=== PATIENT | male | born 1960 | race Caucasian/White ===

== ENCOUNTER 2024-04-29 16:25 | Emergency (ER) | payer BC, SELFPAY ==
[2024-04-29 16:25] VITALS: BP 144/80; PULSE 76; RESP 20; TEMP 36.8; O2SAT 98; BMI 26.8
[2024-04-29 16:45] LABS: Absolute Lymphocyte Count 2.29 X10^3/uL (0.83-4.51); Absolute Neutrophil Count 6.2 X10^3/uL (2.0-7.7); Basophil# 0.13 X10^3/uL; Basophil% 1.3 % (0-1); Eosinophil# 0.26 X10^3/uL; Eosinophils% 2.7 % (0-5); Hematocrit 46.2 % (40-54); Hemoglobin 15.7 g/dL (13.0-16.5); Lymphocyte # 2.29 X10^3/ul (0.83-4.51); Lymphocyte % 23.7 % (19-41); Mean Corpuscular Hgb 29.8 pg (27.0-32.0); Mean Corpuscular Volume 87.7 fL (80-94); Mean Platelet Vol. 8.6 fl (6.2-12.0); Monocyte# 0.71 X10^3/uL; Monocyte% 7.3 % (0-10); NRBC Flagged by Analyzer 0 % (0-5); Neutrophil # 6.23 X10^3/uL (2.7-7.7); Neutrophil % 64.5 % (47-70); Platelet Count 266 K/mm3 (150-450); RBC Distribution Width CV 13.4 % (11.6-14.6); RBC Distribution Width SD 43.5 fl (35.1-43.9); Red Blood Count 5.27 M/mm3 (4.6-6.2); White Blood Count 9.7 K/mm3 (4.4-11.0)
[2024-04-29 17:00] LABS: AST(SGOT) 25 U/L (15-37); Alanine Aminotransfer ALT/SGPT 34 U/L (16-61); Albumin, Serum 3.6 g/dL (3.2-5.0); Alkaline Phosphatase 85 U/L (45-117); Anion Gap 3 (5-15); BUN 13 mg/dL (7-18); BUN/Creat Ratio 12.4 RATIO (10-20); Calcium,Total 9.7 mg/dL (8.5-10.1); Chloride 100 mmol/L (98-107); Creatinine, Serum 1.05 mg/dL (0.70-1.30); EST Glomerular Filtration Rate 76 mL/min (>60); Est Glom Filt Rate - Afr Amer 92 mL/min (>60); Estimated Creatinine Clearance 69.07 ml/min; Globulin 3.6 g/dL (2.2-4.2); Glucose 92 mg/dL (74-106); Potassium 3.6 mmol/L (3.5-5.1); Protein, Total 7.2 g/dL (6.4-8.2); Sodium Level 136 mmol/L (136-145)
--- NOTE | 2024-04-29 17:30 | CT_ITS ---
EXAM: CT ABDOMEN AND PELVIS WITH INTRAVENOUS CONTRAST CLINICAL INDICATION: RLQ pain TECHNIQUE: Helically acquired images were obtained of the abdomen and pelvis with intravenous contrast. This CT exam was performed using one or more of the following dose reduction techniques: automated exposure control, adjustment of the mA and/or kV according to patient size, and/or use of iterative reconstruction technique. CONTRAST: IV 100mL Isovue-300 COMPARISON: No relevant prior studies available. FINDINGS: LOWER THORAX: Unremarkable. Lung bases are clear. No cardiomegaly. No significant pericardial effusion. ABDOMEN: LIVER: Unremarkable. Homogeneous. No focal mass. GALLBLADDER AND BILE DUCTS: Unremarkable. No calcified gallstones. No gallbladder distention or wall edema. No intra- or extrahepatic biliary ductal dilation. PANCREAS: Unremarkable. No focal cystic or solid mass. SPLEEN: Unremarkable. Normal size without focal cystic or solid mass. ADRENALS: Unremarkable. No nodules. KIDNEYS AND URETERS: Unremarkable. Normal renal size and position. No hydronephrosis. STOMACH AND BOWEL: Unremarkable. No stomach or bowel distention. No focal inflammatory change. PELVIS: APPENDIX: No evidence of acute appendicitis. BLADDER: Unremarkable. REPRODUCTIVE: Unremarkable as visualized. No mass. ABDOMEN and PELVIS: INTRAPERITONEAL SPACE: Unremarkable. No ascites or other fluid collection. No free air. BONES/JOINTS: Unremarkable. No suspicious lytic or blastic abnormality. SOFT TISSUES: Unremarkable. No discrete abdominal or pelvic wall hernia. VASCULATURE: Unremarkable. Abdominal aorta is non-dilated. LYMPH NODES: Unremarkable. No enlarged lymph nodes. CT/Abdomen/Pelvis W IV Cont ONLY IMPRESSION: Negative CT of the abdomen and pelvis with intravenous contrast. Electronically Signed: Azar Oconnor MD at 18:39 EDT ,
--- NOTE | 2024-04-29 17:32 | ED.VIS.GI ---
HPI HPI - GI History of Present Illness Chief Complaint: Abd Pain Narrative Narrative: 63-year-old male with past medical history of hypertension, twice daily alcohol, hypercholesterolemia, presents with right lower quadrant abdominal pain that has had since 230 this morning. That was approximately 15 hours ago. He was already awake, so did not awaken from sleep. It is more of an achy pain, and goes through to his back. He tried to put an ice pack on his back, and scratched his skin, and that is exactly where he is having the pain as well. More in the right lower quadrant of his abdomen as well. No nausea or vomiting. No dysuria or hematuria. No problems with bowel movements such as diarrhea. PFSH PFSH Allergy/AdvReac Type Severity Reaction Status Date / Time No Known Allergies Allergy Verified 04/29/24 16:26 Social History Smoking Status: Never smoker ROS ROS ED ROS Narrative Constitutional: No fever, no chills. HEENT: No sore throat. No neck pain. No loss of vision. No rhinorrhea. Cardiovascular: No chest pain. No palpitations. No pedal edema. Respiratory: No cough, no shortness of breath. Abdominal: Right lower quadrant abdominal pain radiating to back. No nausea. No vomiting. Genitourinary: No dysuria. No hematuria. Musculoskeletal: No myalgias. No arthralgias. Neurologic: No headaches. No dizziness. No lightheadedness. Skin: No rash. No change in color. Psychiatric: No depression. No anxiety. EXAM Physical Exam Narrative Exam Narrative: Afebrile. Vital signs noted. HEENT: Normocephalic. Atraumatic. PERRL, EOMI. Neck soft and supple. No point tenderness or step off. Cardiovascular: Regular rate and rhythm. No murmurs, rubs, or gallops appreciated. Respiratory: No tachypnea. Lungs clear to auscultation bilaterally. Gastrointestinal: Abdomen soft, tenderness to palpation right lower quadrant with normoactive bowel sounds. No rebound or guarding. Neurological: Awake. Alert. Nonfocal, nonlateralizing. Ambulatory in ED without difficulty. Skin: No rash. Normal color. No pallor. Musculoskeletal: No pedal edema. Full range of motion extremities. Const Vital Signs: 04/29/24 16:25 04/29/24 18:25 Temperature 98.3 F Temperature Source Temporal Pulse Rate 76 74 Respiratory Rate 20 H 18 Blood Pressure 144/80 H 138/76 H Blood Pressure Mean 101 96 Pulse Ox 98 98 Oxygen Delivery Method Room Air Room Air MDM MDM MDM Narrative Medical decision making narrative: In the differential diagnosis is acute appendicitis versus diverticulitis versus ureterolithiasis. He may also have more of an abdominal wall problem. Comprehensive workup was pursued. I reviewed his laboratory work and he has normal white count 9.7, hemoglobin normal at 15.7, platelet count normal at 266. His CMP is remarkable for a CO2 of 33 but anion gap low at 3 and glucose appropriately elevated at 92. LFTs are grossly unremarkable. Urinalysis is negative for infection. I do not feel antibiotics are indicated. There are no RBCs so I feel that ureterolithiasis is lower on the differential. He was administered morphine and ondansetron and a bolus of normal saline 1 L intravenously. I reviewed the radiology report of the CT of the abdomen and pelvis which shows no acute process. Appendix visualized and there is no evidence of inflammation. No hydronephrosis. At this point in time, upon repeat examination at approximately 1900, he is able to stand and ambulate to the bathroom without difficulty. Feels improved. I feel he can be discharged safely home with follow-up to his primary care provider. Return instructions to the emergency department were reviewed. Disposition is discharged home, in stable condition. History & Record Review Discussion w/independent historian: Patient Lab Data Attestation: I reviewed the patient's lab results. Labs: Laboratory Results - last 24 hr 04/29/24 04/29/24 16:38 17:44 WBC 9.7 RBC 5.27 Hgb 15.7 Hct 46.2 MCV 87.7 MCH 29.8 MCHC 34.0 RDW Std Deviation 43.5 RDW Coeff of Lc 13.4 Plt Count 266 MPV 8.6 Immature Gran % (Auto) 0.500 Neut % (Auto) 64.5 Lymph % (Auto) 23.7 [facility] % (Auto) 7.3 Eos % (Auto) 2.7 Baso % (Auto) 1.3 H Absolute Neuts (auto) 6.2 Absolute Lymphs (auto) 2.29 Nucleated RBC % 0 Sodium 136 Potassium 3.6 Chloride 100 Carbon Dioxide 33.0 H Anion Gap 3 L BUN 13 Creatinine 1.05 Estim Creat Clear Calc 69.07 Est GFR (MDRD) Af Amer 92 Est GFR (MDRD) Non-Af 76 BUN/Creatinine Ratio 12.4 Glucose 92 Calcium 9.7 Total Bilirubin 1.00 AST 25 ALT 34 Alkaline Phosphatase 85 Total Protein 7.2 Albumin 3.6 Globulin 3.6 Albumin/Globulin Ratio 1.0 Urine Color Yellow Urine Clarity Clear Urine pH 6.5 Ur Specific [place] 1.005 Urine Protein Negative Urine Glucose (UA) Normal Urine Ketones Negative Urine Occult Blood Negative Urine Nitrite Negative Urine Bilirubin Negative Urine Urobilinogen Normal Ur Leukocyte Esterase Negative Urine RBC 0 SEEN Urine WBC 0 SEEN Ur Squamous Epith Cells 0 SEEN Urine Bacteria 0 SEEN Urine Mucus 0 SEEN Radiography Diagnostic Testing: Clinical Impression(s) from Imaging Studies Abdomen/Pelvis CT 04/29/24 17:30 IMPRESSION: Negative CT of the abdomen and pelvis with intravenous contrast. Electronically Signed: Azar Oconnor MD at 18:39 EDT , Discharge Plan Triage Chief Complaint: Abd Pain ED Provider: Ross Vega Dx/Rx/DC Orders Clinical Impression: Abdominal pain, RLQ Instructions: ED Abdominal Pain Unkn Cause Male... Primary Care Provider: Nettie Zarate Referrals: [facility] Doctor,Out of [Non-Staff] - 3-5 Days if not improving Activity Restrictions/Additional Instructions: Follow-up with your primary care provider in the next 3 to 5 days if not improving. Return with new or worsening symptoms. [id number] medications as needed for pain. Print Language: Martiniquais Disposition Disposition: Home, Self Care
[2024-04-29] MEDS: Morphine 4 MG/ML Syringe IV (17:38)
[2024-04-29] MEDS: Ondansetron 4 MG/2 ML Vial IV (17:38)
[2024-04-29] MEDS: 0.9% Normal Saline (1000mL) 1,000 ML 999 ML IV (17:38)
[2024-04-29 17:50] LABS: Bacteria 0 SEEN /hpf (None Seen); Mucous, Urine 0 SEEN /hpf (<or=2+); Red Blood Cells-Urine 0 SEEN /hpf (0-5); Squamous Epithelial Cells - UA 0 SEEN /hpf (0-5); White Blood Cells 0 SEEN /hpf (0-5)
[2024-04-29 17:54] LABS: Color, Urine Yellow (Yellow); Glucose, Dipstick Normal (Normal); Ketone-Dipstick Negative (Negative); Leukocyte Esterase-Dipstick Negative /ul (Negative); Nitrite-Dipstick Negative (Negative); Occult Blood-Urine Negative /ul (Negative); Protein-Dipstick Negative (Negative); Specific Gravity, Urine 1.005 (1.002-1.030); Urine Bilirubin Dipstick Negative (Negative); Urine Clarity Clear (Clear); Urine Urobilinogen Normal (Normal); Urine pH 6.5 (5.0 - 8.0)
[2024-04-29 18:25] VITALS: BP 138/76; PULSE 74; RESP 18; O2SAT 98
== END 2024-04-29 19:18 | disposition home or self-care (01) ==
PROVIDERS: Emergency Provider Emergency Medicine; PCP Internal Medicine; Visit Provider Emergency Medicine
DX: R10.31 Right lower quadrant pain (principal)
CPT/HCPCS: 74177; 80053; 81001; 85025; 96374; 96375; 96376; 99282; J7030; Q9967; A4216; J2405